=== PATIENT | female | born 1955 | race African-American/Black ===

== ENCOUNTER 2016-09-24 16:27 | Emergency (ER) | payer OTHER ==
[~2016-09-24] VITALS: Ht 175.3 cm; Wt 152.4 kg
[~2016-09-24 16:27] MED LIST: ACETAMINOPHEN-1 EACH ORAL; ALBUTEROL SULF8.5 GM INH; AZITHROMYCIN250 MG ORAL; BACTRIM DS TAB1 EAC1 ORAL; CEPHALEXIN500 MG ORAL; FLURAZEPAM HCL30 MG ORAL; HYDROCHLOROTHIA50 MG PO; MELOXICAM15 MG PO; NORCO 5-325 TA1 EACH ORAL; OMEPRAZOLE20 M3 ORAL; SIMVASTATIN20 MG ORAL; TRAMADOL HCL50 MG ORAL; TYLENOL EXTRA500 MG ORAL
[2016-09-24 16:46] VITALS: BP 198/105
--- NOTE | 2016-09-24 17:15 | Emergency Room Report ---
History of Present Illness General Chief Complaint: General Complaint Source: Patient, Medical Record Present Illness HPI Patient is a 60-year-old female presented after increased arm pain intermittent in nature over the past 2 days. Patient states that she had recently noticed some increase in her blood pressure. Patient had been intermittently compliant with her blood pressure medications. Patient stated that she had previously been taking hydrochlorothiazide which she had not been taking. Patient reports having increased sodium intake in her diet. She denies any productive cough or fever Allergies: Coded Allergies: IBUPROFEN (Verified Allergy, Unknown, 08/06/11) Patient History Past Medical History: see triage record Reviewed Nursing Documentation: PMH: Agreed, PSxH: Agreed Nursing Documentation-PMH Hx Hypertension: Yes Hx Gastrointestinal Problems: Yes - Gastric ulcer Review of Systems All Other Systems: negative except mentioned in HPI Physical Exam Vital Signs Date Time Temp Pulse Resp B/P Pulse Ox O2 Delivery O2 Flow Rate FiO2 09/24/16 16:37 98.1 72 16 198/105 99 Room Air Sp02 EP Interpretation: reviewed, normal General Appearance: normal inspection, well appearing, no apparent distress, alert, GCS 15 Head: atraumatic ENT: normal ENT inspection, hearing grossly normal, normal voice Neck: normal inspection, full range of motion, supple, no bony tend Respiratory: normal inspection, lungs clear, normal breath sounds, no respiratory distress, no retraction, no wheezing Cardiovascular #1: regular rate, rhythm, no edema Gastrointestinal: normal inspection, normal bowel sounds, non tender, soft, no guarding, no hernia Genitourinary: no CVA tenderness Musculoskeletal: normal inspection, back normal, normal range of motion Neurologic: normal inspection, alert, responsive, speech normal Psychiatric: normal inspection, judgement/insight normal, mood/affect normal Skin: normal inspection, normal color, no rash Medical Decision Making Diagnostic Impression: Primary Impression: Urinary tract infection ER Course Patient presented for generalized weakness. Differential diagnosis included was not limited to anemia, urinary tract infection, electrolyte abnormality, hypothyroidism, myocardial infarction, myasthenia gravis, dehydration, among others. Because of complexity of patient's case laboratory testing and imaging studies were ordered.Laboratory testing was unremarkable. There was slight elevation of the patient's urine white blood count consistent with possible UTI. Patient was given prescription for Macrobid. Patient is advised to take her medications as previously prescribed. EKG interpreted by me showed normal sinus rhythm with a rate of [address] or T wave changes. Labs Test 09/24/16 18:15 White Blood Count 5.9 K/UL (4.8-10.8) Red Blood Count 4.55 M/UL (4.20-5.40) Hemoglobin 13.0 G/DL (12.0-16.0) Hematocrit 39.9 % (37.0-47.0) Mean Corpuscular Volume 88 FL (80-99) Mean Corpuscular Hemoglobin 28.5 PG (27.0-31.0) Mean Corpuscular Hemoglobin Concent 32.5 G/DL (32.0-36.0) Red Cell Distribution Width 12.9 % (11.6-14.8) Platelet Count 199 K/UL (150-450) Mean Platelet Volume 8.9 FL (6.5-10.1) Neutrophils (%) (Auto) 48.3 % (45.0-75.0) Lymphocytes (%) (Auto) 43.3 % (20.0-45.0) Monocytes (%) (Auto) 4.6 % (1.0-10.0) Eosinophils (%) (Auto) 2.2 % (0.0-3.0) Basophils (%) (Auto) 1.7 % (0.0-2.0) Urine Color Pale yellow Urine Appearance Clear Urine pH 6 (4.5-8.0) Urine Specific [place] 1.015 (1.005-1.035) Urine Protein Negative (NEGATIVE) Urine Glucose (UA) Negative (NEGATIVE) Urine Ketones Negative (NEGATIVE) Urine Occult Blood Negative (NEGATIVE) Urine Nitrite Negative (NEGATIVE) Urine Bilirubin Negative (NEGATIVE) Urine Urobilinogen Normal MG/DL (0.0-1.0) Urine Leukocyte Esterase 1+ (NEGATIVE) Urine RBC 0-2 /HPF (0 - 2) Urine WBC 2-4 /HPF (0 - 2) Urine Squamous Epithelial Cells Few /LPF (NONE/OCC) Urine Bacteria None /HPF (NONE) Sodium Level 140 mEQ/L (135-145) Potassium Level 4.1 mEQ/L (3.4-4.9) Chloride Level 99 mEQ/L (98-107) Carbon Dioxide Level 24 mEQ/L (20-30) Anion Gap 17 (5-15) Blood Urea Nitrogen 9 mg/dL (7-23) Creatinine 0.9 mg/dL (0.5-0.9) Estimat Glomerular Filtration Rate > 60 mL/min (>60) Glucose Level 93 mg/dL (74-106) Calcium Level 9.1 mg/dL (8.6-10.2) Total Bilirubin 0.5 mg/dL (0.0-1.2) Aspartate Amino Transf (AST/SGOT) 13 U/L (5-40) Alanine Aminotransferase (ALT/SGPT) 8 U/L (3-33) Alkaline Phosphatase 62 U/L (35-104) Total Creatine Kinase 125 U/L (26-140) Troponin I < 0.30 ng/mL (<=0.30) Total Protein 7.1 g/dL (6.6-8.7) Albumin 4.0 g/dL (3.5-5.2) Globulin 3.1 g/dL Albumin/Globulin Ratio 1.2 (1.0-2.7) Urine Opiates Screen Positive (NEGATIVE) Urine Barbiturates Screen Negative (NEGATIVE) Phencyclidine (PCP) Screen Negative (NEGATIVE) Urine Amphetamines Screen Negative (NEGATIVE) Urine Benzodiazepines Screen Negative (NEGATIVE) Urine Cocaine Screen Negative (NEGATIVE) Urine Marijuana (THC) Screen Negative (NEGATIVE) EKG Diagnostic Results Rate: normal - 75 Rhythm: NSR ST Segments: no acute changes Rhythm Strip Diag. Results EP Interpretation: yes Rhythm: NSR, no PVC's, no ectopy Last Vital Signs Date Time Temp Pulse Resp B/P Pulse Ox O2 Delivery O2 Flow Rate FiO2 09/24/16 16:46 98.1 16 198/105 99 Room Air 09/24/16 16:37 72 Status: improved Disposition: HOME, SELF-CARE Condition: Stable Scripts Nitrofurantoin Monohyd/M-Cryst* (MACROBID 100 MG*) 100 Mg Capsule 100 MG ORAL EVERY 12 HOURS, #14 CAP Prov: Segun Brian 09/24/16 Referrals: [facility],REFERRING (PCP) Segun Brian Sep 24, 2016 17:15
[2016-09-24] MEDS ORDERED: Aspirin Baby 81mg ORAL ONE (17:30)
[2016-09-24 18:33] LABS: BASOPHILS % (AUTO) 1.7 % (0.0-2.0); EOSINOPHILS % (AUTO) 2.2 % (0.0-3.0); LYMPHOCYTES % (AUTO) 43.3 % (20.0-45.0); MEAN CORPUSCULAR HEMOGLOBIN 28.5 PG (27.0-31.0); MEAN CORPUSCULAR HGB CONC 32.5 G/DL (32.0-36.0); MEAN CORPUSCULAR VOLUME 88 FL (80-99); MEAN PLATELET VOLUME 8.9 FL (6.5-10.1); MONOCYTES % (AUTO) 4.6 % (1.0-10.0); NEUTROPHILS % (AUTO) 48.3 % (45.0-75.0); PLATELET COUNT 199 K/UL (150-450); RED BLOOD COUNT 4.55 M/UL (4.20-5.40); RED CELL DISTRIBUTION WIDTH 12.9 % (11.6-14.8); WHITE BLOOD COUNT 5.9 K/UL (4.8-10.8)
[2016-09-24 18:40] LABS: APPEARANCE,URINE CLEAR
[2016-09-24 18:41] LABS: KETONES,URINE NEGATIVE (NEGATIVE); LEUKOCYTE ESTERASE ,URINE 1+ (NEGATIVE); NITRITE,URINE NEGATIVE (NEGATIVE); PH,URINE 6 (4.5-8.0); PROTEIN,URINE NEGATIVE (NEGATIVE); UROBILINOGEN,URINE NORMAL MG/DL (0.0-1.0)
[2016-09-24 18:43] LABS: RBC,URINE 0-2 /HPF (0 - 2); SQUAMOUS EPITHELIAL CELL,UR FEW /LPF (NONE/OCC)
[2016-09-24 18:51] LABS: TROPONIN I < 0.30 ng/mL (<=0.30)
[2016-09-24 18:52] LABS: ALANINE AMINOTRANSFERASE 8 U/L (3-33); ALBUMIN/GLOBULIN RATIO 1.2 (1.0-2.7); ANION GAP 17 (5-15); ASPARTATE AMINO TRANSFERASE 13 U/L (5-40); CALCIUM 9.1 mg/dL (8.6-10.2); CARBON DIOXIDE 24 mEQ/L (20-30); CHLORIDE 99 mEQ/L (98-107); CREATININE 0.9 mg/dL (0.5-0.9); GLOMERULAR FILTRATION RATE > 60 mL/min (>60); HEMOLYSIS 19; POTASSIUM 4.1 mEQ/L (3.4-4.9); SODIUM 140 mEQ/L (135-145); TOTAL PROTEIN 7.1 g/dL (6.6-8.7)
[2016-09-24] MEDS ORDERED: NITROFURANTOIN100 M2 ORAL (19:00)
[2016-09-24 19:02] LABS: CKMB 1.6 ng/mL (< 3.8)
[2016-09-24 19:10] VITALS: BP 148/57
--- NOTE | 2016-09-25 09:45 | Diagnostic Imaging Report ---
Indication: SOB Technique: XRAY CHEST 1 V Comparison: 09/01/2012. Findings: The cardiomediastinal silhouette is normal. The lungs are clear. There is no evidence of pleural fluid. The bones are unremarkable. Impression: Normal chest.
--- NOTE | 2016-09-28 00:26 | Cardiology Report ---
APPROVED REPORT EKG Measurement Heart [id number] Normal sinus rhythm Normal ECG
== END 2016-09-24 19:10 | disposition home or self-care (01) ==
LOC: EMR 17:04
DX: N39.0 Urinary tract infection, site not specified (principal); I10 Essential (primary) hypertension; Z88.6 Allergy status to analgesic agent
CPT/HCPCS: 36415; 71010; 80053; 80300; 81003; 82550; 82553; 84484; 85025; 93005; 99283

== ENCOUNTER 2018-06-28 19:43 | Emergency (ER) | payer OTHER ==
[~2018-06-28] VITALS: Ht 175.3 cm; Wt 152.4 kg
[~2018-06-28 19:43] MED LIST changes: +NITROFURANTOIN100 M2 ORAL
[2018-06-28] MEDS ORDERED: UNOBMED (19:50)
--- NOTE | 2018-06-28 19:50 | NUR ---
ED Nurse Note: pt brought in by [facility] c/o dizziness and generalized weakness started this morning, pt reports she has been having some cold s/s this week but denies any injury or pain at this time. pt AA&xo4, gcs=15, skin warm and dry, resp even and unlabored, +N -v/d, active BS, ambulatory w/ cane w/ steady gait, NSR on personnel monitor, VSS, will cont monitor, bed lowest position w/ side rail x2, pt advised to notify staff if needed assist.
[2018-06-28] MEDS ORDERED: Meclizine 25mg tab ORAL PRN (20:00)
[2018-06-28] MEDS ORDERED: Sodium Chloride 500ML 550 ML IV SCH (20:00)
[2018-06-28 20:41] LABS: BASOPHILS % (AUTO) 1.4 % (0.0-2.0); EOSINOPHILS % (AUTO) 3.6 % (0.0-3.0); HEMATOCRIT 37.9 % (37.0-47.0); HEMOGLOBIN 12.1 G/DL (12.0-16.0); LYMPHOCYTES % (AUTO) 43.9 % (20.0-45.0); MEAN CORPUSCULAR VOLUME 89 FL (80-99); MONOCYTES % (AUTO) 5.8 % (1.0-10.0); NEUTROPHILS % (AUTO) 45.2 % (45.0-75.0); PLATELET COUNT 214 K/UL (150-450); RED BLOOD COUNT 4.26 M/UL (4.20-5.40); RED CELL DISTRIBUTION WIDTH 12.1 % (11.6-14.8); WHITE BLOOD COUNT 5.4 K/UL (4.8-10.8)
[2018-06-28 20:42] VITALS: BP 133/56
[2018-06-28 20:44] LABS: APPEARANCE,URINE CLEAR; BILIRUBIN, URINE NEGATIVE (NEGATIVE); COLOR,URINE PALE YELLOW; GLUCOSE, URINE (UA) NEGATIVE (NEGATIVE); KETONES,URINE NEGATIVE (NEGATIVE); LEUKOCYTE ESTERASE ,URINE NEGATIVE (NEGATIVE); NITRITE,URINE NEGATIVE (NEGATIVE); PH,URINE 6 (4.5-8.0); PROTEIN,URINE NEGATIVE (NEGATIVE); UROBILINOGEN,URINE NORMAL MG/DL (0.0-1.0)
[2018-06-28 20:50] LABS: ANION GAP 8 mmol/L (5-15); BLOOD UREA NITROGEN 10 mg/dL (7-18); CALCIUM 8.9 MG/DL (8.5-10.1); CARBON DIOXIDE 25 MMOL/L (21-32); CHLORIDE 105 MMOL/L (98-107); CREATININE 0.9 MG/DL (0.55-1.30); POTASSIUM 4.4 MMOL/L (3.5-5.1); SODIUM 138 MMOL/L (136-145)
--- NOTE | 2018-06-28 20:50 | NUR ---
ED Nurse Note: pt reports nausea and dizziness is better with medication, pt NSR, vss on clinical laboratory assistant, bed lowest position w/ siderail x2, pt advised to notify staff if needed assist, pt resting comfortably, will cont monitor.
[2018-06-28 21:06] LABS: ALANINE AMINOTRANSFERASE 20 U/L (12-78); ALBUMIN 3.5 G/DL (3.4-5.0); ALBUMIN/GLOBULIN RATIO 0.9 (1.0-2.7); ALKALINE PHOSPHATASE 81 U/L (46-116); ASPARTATE AMINO TRANSFERASE 29 U/L (15-37); BILIRUBIN,TOTAL 0.4 MG/DL (0.2-1.0); CREATINE KINASE 162 U/L (26-308)
--- NOTE | 2018-06-28 21:18 | Emergency Room Report ---
History of Present Illness General Chief Complaint: Generalized Weakness Source: Patient Present Illness HPI Patient presents with a feeling of dizziness and lack of wellness. She feels nausea. When she turns her head she feels the world spinning. She feels like she does not have to throw up. Also there is more discomfort and tightness in the left side of her neck. Comes from her left shoulder radiates up towards her ear on that side. She has not had any fevers or chills. There is no tinnitus. She never had this feeling before. She denies chest pain although she is worried about her heart because is her left neck where she feels discomfort.. She denies sore throat or sinus problems. The symptoms are somewhat better when she lays down. She denies any headache. She denies pain to the nurse and complains more of stiffness in the neck to me. No family history of strokes or aneurysms. There is no unilateral tingling or weakness. No palpitations. Risk factors for cardiac disease: Hypertension. She denies diabetes, smoking, family history and is not being treated for cholesterol. Allergies: Coded Allergies: No Known Allergies (Unverified , 06/28/18) Patient History Past Medical History: see triage record Social History: Denies: smoking Social History Narrative from home Last Menstrual Period: CURLY Reviewed Nursing Documentation: PMH: Agreed; PSxH: Agreed Nursing Documentation-PMH Past Medical History: No History, Except For Hx Hypertension: Yes Hx Gastrointestinal Problems: Yes - Gastric ulcer Review of Systems All Other Systems: negative except mentioned in HPI Physical Exam Vital Signs Date Time Temp Pulse Resp B/P (MAP) Pulse Ox O2 Delivery O2 Flow Rate FiO2 06/28/18 19:47 98.4 120 16 198/100 99 Room Air Sp02 EP Interpretation: reviewed, normal General Appearance: well appearing, no apparent distress, GCS 15 Head: normocephalic Eyes: bilateral eye normal inspection, bilateral eye PERRL, bilateral eye EOMI ENT: normal pharynx, normal voice, TMs + canals normal, moist mucus membranes Neck: full range of motion, supple, no bony tend, tender lateral - Left anterior Respiratory: chest non-tender, lungs clear, normal breath sounds Cardiovascular #1: regular rate, rhythm Cardiovascular #2: 2+ radial (R) Gastrointestinal: normal inspection, normal bowel sounds, non tender, no mass, non-distended Musculoskeletal: back normal, gait/station normal, normal range of motion Neurologic: alert, oriented x3, acetylene torch burner III-XII nml as tested, motor strength/tone normal, DTRs symmetric, sensory intact, cerebellar normal, normal gait, speech normal Psychiatric: mood/affect normal - Slightly anxious Skin: normal inspection, warm/dry Medical Decision Making Diagnostic Impression: Primary Impression: Vertigo ER Course Patient presents with the world spinning when she turns her head with some left neck stiffness. Differential includes labyrinthitis, benign positional vertigo , neck strain, cerebellar infarct amongst others. She is concerned about heart attack and will be evaluated with EKG, chest x-ray and labs. Based on the neurologic exam CT of the head is not indicated at this time. She will be treated with Zofran and meclizine. EKG without injury. Chest x-ray normal. CBC and CMP are normal. Urinalysis clear. Patient is improved after treatment. The vertigo is better with meclizine and there is no more nausea after Zofran. Lab results are discussed with the patient and she was reassured that this is not a heart attack or stroke. She was told she needed close outpatient observation and repeat evaluation by her own doctors. No medical emergency identified at this time. Patient is stable for outpatient observation and treatment. Laboratory Tests Test 06/28/18 20:08 White Blood Count 5.4 K/UL (4.8-10.8) Red Blood Count 4.26 M/UL (4.20-5.40) Hemoglobin 12.1 G/DL (12.0-16.0) Hematocrit 37.9 % (37.0-47.0) Mean Corpuscular Volume 89 FL (80-99) Mean Corpuscular Hemoglobin 28.5 PG (27.0-31.0) Mean Corpuscular Hemoglobin Concent 32.0 G/DL (32.0-36.0) Red Cell Distribution Width 12.1 % (11.6-14.8) Platelet Count 214 K/UL (150-450) Mean Platelet Volume 7.8 FL (6.5-10.1) Neutrophils (%) (Auto) 45.2 % (45.0-75.0) Lymphocytes (%) (Auto) 43.9 % (20.0-45.0) Monocytes (%) (Auto) 5.8 % (1.0-10.0) Eosinophils (%) (Auto) 3.6 % (0.0-3.0) H Basophils (%) (Auto) 1.4 % (0.0-2.0) Prothrombin Time 10.1 SEC (9.30-11.50) Prothrombin Time INR 1.0 (0.9-1.1) PTT 26 SEC (23-33) Urine Color Pale yellow Urine Appearance Clear Urine pH 6 (4.5-8.0) Urine Specific [place] 1.015 (1.005-1.035) Urine Protein Negative (NEGATIVE) Urine Glucose (UA) Negative (NEGATIVE) Urine Ketones Negative (NEGATIVE) Urine Blood Negative (NEGATIVE) Urine Nitrite Negative (NEGATIVE) Urine Bilirubin Negative (NEGATIVE) Urine Urobilinogen Normal MG/DL (0.0-1.0) Urine Leukocyte Esterase Negative (NEGATIVE) Sodium Level 138 MMOL/L (136-145) Potassium Level 4.4 MMOL/L (3.5-5.1) Chloride Level 105 MMOL/L (98-107) Carbon Dioxide Level 25 MMOL/L (21-32) Anion Gap 8 mmol/L (5-15) Blood Urea Nitrogen 10 mg/dL (7-18) Creatinine 0.9 MG/DL (0.55-1.30) Estimate Glomerular Filtration Rate > 60 mL/min (>60) Glucose Level 112 MG/DL (74-106) H Calcium Level 8.9 MG/DL (8.5-10.1) Total Bilirubin 0.4 MG/DL (0.2-1.0) Aspartate Amino Transferase (AST) 29 U/L (15-37) Alanine Aminotransferase (ALT) 20 U/L (12-78) Alkaline Phosphatase 81 U/L (46-116) Total Creatine Kinase 162 U/L (26-308) Troponin I 0.000 ng/mL (0.000-0.056) Pro-B-Type Natriuretic Peptide 179 pg/mL (0-125) H Total Protein 7.5 G/DL (6.4-8.2) Albumin 3.5 G/DL (3.4-5.0) Globulin 4.0 g/dL Albumin/Globulin Ratio 0.9 (1.0-2.7) L Urine Opiates Screen Negative (NEGATIVE) Urine Barbiturates Screen Negative (NEGATIVE) Phencyclidine (PCP) Screen Negative (NEGATIVE) Urine Amphetamines Screen Negative (NEGATIVE) Urine Benzodiazepines Screen Negative (NEGATIVE) Urine Cocaine Screen Negative (NEGATIVE) Urine Marijuana (THC) Screen Negative (NEGATIVE) EKG Diagnostic Results Rate: normal Rhythm: NSR ST Segments: no acute changes Rhythm Strip Diag. Results EP Interpretation: yes Rhythm: NSR, other - rate 76 PVC Chest X-Ray Diagnostic Results Chest X-Ray Diagnostic Results : Chest X-Ray Ordered: Yes # of Views/Limited/Complete: 1 View Indication: Other EP Interpretation: Yes Interpretation: no consolidation, no effusion, no pneumothorax, other - DJD Impression: Other Electronically Signed by: Electronically signed by Nathaniel De La Rosa MD Last Vital Signs Date Time Temp Pulse Resp B/P (MAP) Pulse Ox O2 Delivery O2 Flow Rate FiO2 06/28/18 21:38 97.4 69 16 133/69 100 Room Air Status: improved Disposition: HOME, SELF-CARE Condition: Improved Scripts Meclizine Hcl* (MECLIZINE*) 25 Mg Tablet 25 MG ORAL THREE TIMES A DAY PRN for dizziness, #10 TAB Prov: Nathaniel De La Rosa MD 06/28/18 Ondansetron Odt* (ZOFRAN ODT*) 4 Mg Tab.rapdis 4 MG BC EVERY 8 HOURS, #6 TAB 0 Refills Prov: Nathaniel De La Rosa MD 06/28/18 Nathaniel De La Rosa MD Jun 28, 2018 21:18
[2018-06-28] MEDS ORDERED: ONDANSETRON ODT4 MG BC (21:31)
[2018-06-28] MEDS ORDERED: MECLIZINE HCL25 MG ORAL (21:31)
[2018-06-28 21:38] VITALS: BP 133/69
--- NOTE | 2018-06-28 22:10 | NUR ---
ED Nurse Note: pt discharge instruction provided w/ prescription, EKG, and lab results per ERMD order, pt education done via discussion and handout, pt iv d/c, pt tolerated well w/o difficulty, dressing applied and intact, wrist band removed, pt advised to follow up with pcp or return to ED if s/s worsen or new s/s develop, pt verbalized understanding and agrees with plan, pt taxi voucher issued, contacted house sup, pt ambulatory w/ cane w/ steady gait, pt vss, AA&ox4, gcs=15. all belongings left with pt.
--- NOTE | 2018-06-29 12:15 | Diagnostic Imaging Report ---
Indication: Dyspnea Comparison: 09/24/2016 A single view chest radiograph was obtained. Findings: Cardiomediastinal appearance is within normal limits for age. The lungs are clear. Pulmonary vascularity is appropriate. The diaphragmatic contour is smooth and costophrenic angles are sharp. No pleural effusions are identified. Osteophytes noted throughout the thoracic spine. Impression: No acute findings
--- NOTE | 2018-06-29 15:47 | Cardiology Report ---
APPROVED REPORT EKG Measurement Heart [id number] Normal sinus rhythm Normal ECG
== END 2018-06-28 21:40 | disposition home or self-care (01) ==
LOC: EDBD 19:43 → EMR 20:17
DX: R42 Dizziness and giddiness (principal); R53.1 Weakness; M43.6 Torticollis; I10 Essential (primary) hypertension; Z87.19 Personal history of other diseases of the digestive system
CPT/HCPCS: 36415; 71045; 80053; 80307; 81003; 82550; 83880; 84484; 85025; 85610; 85730; 93005; 96361; 96374; 99284; J2405

== ENCOUNTER 2018-09-19 20:54 | Emergency (ER) | payer OTHER ==
[~2018-09-19] VITALS: Ht 170.2 cm; Wt 161.0 kg
[~2018-09-19 20:54] MED LIST changes: +MECLIZINE HCL25 MG ORAL; +ONDANSETRON ODT4 MG BC; +UNOBMED
[2018-09-19 21:09] VITALS: BP 152/91
--- NOTE | 2018-09-19 21:09 | NUR ---
ED Nurse Note: Pt arrived ED from home. C/o left lower abdominal pain 11/19 today . Pt is A/OX 4. Vital signs stable at this time, waiting for orders.
[2018-09-19] MEDS ORDERED: NITROFURANTOIN100 M2 ORAL (21:35)
[2018-09-19 21:45] VITALS: BP 152/91
--- NOTE | 2018-09-19 21:45 | NUR ---
ER DISCHARGE NOTE: Patient is cleared to be discharged per Dr. Muñoz. Pt is A/O x 4 on room air with stable vital signs. Pt was given D/C and prescription instructions and was able to verbalize understanding. Pt's ID band removed. Pt is able to ambulate with steady gait and took all belongings. Accompanied by his family.
[2018-09-19 21:57] LABS: APPEARANCE,URINE CLEAR; BILIRUBIN, URINE NEGATIVE (NEGATIVE); GLUCOSE, URINE (UA) NEGATIVE (NEGATIVE); KETONES,URINE 1+ (NEGATIVE); LEUKOCYTE ESTERASE ,URINE 2+ (NEGATIVE); NITRITE,URINE NEGATIVE (NEGATIVE); PH,URINE 5 (4.5-8.0); PROTEIN,URINE 2+ (NEGATIVE); UROBILINOGEN,URINE 1 MG/DL (0.0-1.0)
[2018-09-19 21:58] LABS: COLOR,URINE YELLOW
--- NOTE | 2018-09-19 23:11 | Emergency Room Report ---
History of Present Illness General Chief Complaint: Female Urogenital Problems Source: Patient Present Illness HPI Patient persist with complaints of left lower back pain some radiation towards the lower left abdominal region Patient came in with family member with reports of eye pressure Denies any fall denies any dysuria She has some frequency of urination Denies any loss of control of bowel or urination patient ambulate with a cane chronically Denies any fevers denies any vomiting or diarrhea Discomfort ongoing over the past several days Allergies: Coded Allergies: No Known Allergies (Unverified , 06/28/18) Patient History Past Medical History: see triage record Pertinent Family History: none Reviewed Nursing Documentation: PMH: Agreed; PSxH: Agreed Nursing Documentation-PMH Hx Hypertension: Yes Hx Gastrointestinal Problems: Yes - Gastric ulcer Review of Systems All Other Systems: negative except mentioned in HPI Physical Exam Vital Signs Date Time Temp Pulse Resp B/P (MAP) Pulse Ox O2 Delivery O2 Flow Rate FiO2 09/19/18 20:58 96 16 154/93 94 Sp02 EP Interpretation: reviewed, normal General Appearance: no apparent distress Head: normocephalic, atraumatic Eyes: bilateral eye PERRL, bilateral eye EOMI ENT: normal pharynx Neck: supple Respiratory: lungs clear, no retraction, no accessory muscle use Cardiovascular #1: regular rate, rhythm Gastrointestinal: non tender, soft Musculoskeletal: other - Some discomfort reproduced over the left posterior superior iliac crest no midline tenderness Neurologic: alert, oriented x3, responsive Skin: normal color, no rash Medical Decision Making Diagnostic Impression: Primary Impression: sciatica Additional Impression: uti ER Course Given the patient's presentation and history multiple differentials and consideration Patient did have urine sample obtained That showed 2+ leukocytes there is some consideration for sciatic type discomfort as well patient does not meet emergency criteria for imaging Is otherwise stable does not appear septic or toxic And is appropriate for close outpatient follow-up Labs Test 09/19/18 21:32 Urine Color Yellow Urine Appearance Clear Urine pH 5 (4.5-8.0) Urine Specific [place] 1.025 (1.005-1.035) Urine Protein 2+ (NEGATIVE) Urine Glucose (UA) Negative (NEGATIVE) Urine Ketones 1+ (NEGATIVE) Urine Blood Negative (NEGATIVE) Urine Nitrite Negative (NEGATIVE) Urine Bilirubin Negative (NEGATIVE) Urine Urobilinogen 1 MG/DL (0.0-1.0) Urine Leukocyte Esterase 2+ (NEGATIVE) Urine RBC 0-2 /HPF (0 - 2) Urine WBC 2-4 /HPF (0 - 2) Urine Squamous Epithelial Cells Few /LPF (NONE/OCC) Urine Bacteria Few /HPF (NONE) Last Vital Signs Date Time Temp Pulse Resp B/P (MAP) Pulse Ox O2 Delivery O2 Flow Rate FiO2 09/19/18 20:58 96 16 154/93 94 Status: unchanged Disposition: HOME, SELF-CARE Condition: Stable Scripts Nitrofurantoin Monohyd/M-Cryst* (MACROBID 100 MG*) 100 Mg Capsule 100 MG ORAL EVERY 12 HOURS for 7 Days, CAP Prov: Marlene Muñoz DO 09/19/18 Referrals: [facility],REFERRING (PCP) Patient Instructions: Urinary Tract Infection, Sciatica, [id number] Additional Instructions: Patient is provided with the discharge instructions notified to follow up with primary doctor in the next 2-3 days otherwise return to the er with any worsening symptoms. Please note that this report is being documented using DRAGON technology. This can lead to erroneous entry secondary to incorrect interpretation by the dictating instrument. Marlene Muñoz DO Sep 19, 2018 23:11
--- NOTE | 2018-09-19 23:22 | NUR ---
Note kaity in EDM - 09/19/18 at 2326 by JUAN ED Nurse Note: Pt arrived ED from home. C/o left lower abdominal pain 11/19 today . Pt is A/OX 4. Vital signs stable at this time, waiting for orders.
== END 2018-09-19 21:45 | disposition home or self-care (01) ==
LOC: EMR 21:30
DX: M54.40 Lumbago with sciatica, unspecified side (principal); N39.0 Urinary tract infection, site not specified; I10 Essential (primary) hypertension
CPT/HCPCS: 81003; 99283

== ENCOUNTER 2019-08-27 14:27 | Emergency (ER) | payer OTHER ==
[~2019-08-27] VITALS: Ht 175.3 cm; Wt 153.3 kg
[2019-08-27 14:39] VITALS: BP 140/68
--- NOTE | 2019-08-27 14:45 | NUR ---
ED Nurse Note: patient walked into ED from home c/o she twisted her back while she was holding something heavy (water), c/o lower back and left sided pain for 2 days. c/o twisted back; c/o lower back and left side pain for the past few days.
[2019-08-27] MEDS ORDERED: LIDODERM700 M1 TOPIC (15:09)
[2019-08-27 15:18] VITALS: BP 140/68
--- NOTE | 2019-08-27 15:21 | NUR ---
ER DISCHARGE NOTE: Patient is cleared to be discharged per ERMD DR RANDOLPH, pt is aox4, on room air, with stable vital signs. pt was given dc and prescription instructions, pt was able to verbalize understanding, pt id band removed without complications. pt is able to ambulate with steady gait. pt took all belongings.
--- NOTE | 2019-08-27 18:25 | Emergency Room Report ---
History of Present Illness General Chief Complaint: Back Injury Source: Patient Present Illness HPI [id number] complaining of back pain. Says this started a few days ago when she was lifting some heavy items and nearly fell and felt twisting in her back. Notes pain in her lower back. Dull, 8 out of 10, nonradiating. Denies fevers or chills. Denies bowel or bladder incontinence. Denies any leg or motor weakness. Denies any other injuries. No other aggravating relieving factors. Denies any other associated symptoms COVID-19 risk:Travel to affect: No Has patient experienced varner: No Allergies: Coded Allergies: No Known Allergies (Unverified , 06/28/18) Patient History Past Medical History: HTN, GERD Pertinent Family History: none Social History: Denies: smoking, alcohol use, drug use Now: No Immunizations: UTD Reviewed Nursing Documentation: PMH: Agreed; PSxH: Agreed Nursing Documentation-PMH Past Medical History: No History, Except For Hx Hypertension: Yes Hx Gastrointestinal Problems: Yes - Gastric ulcer Review of Systems All Other Systems: negative except mentioned in HPI Physical Exam Vital Signs Date Time Temp Pulse Resp B/P (MAP) Pulse Ox O2 Delivery O2 Flow Rate FiO2 08/27/19 14:39 98.8 102 18 140/68 99 Room Air Sp02 EP Interpretation: reviewed, normal General Appearance: no apparent distress, alert, GCS 15, non-toxic, obese Head: normocephalic, atraumatic Eyes: bilateral eye normal inspection, bilateral eye PERRL ENT: hearing grossly normal, normal pharynx, no angioedema, normal voice Neck: full range of motion, supple/symm/no masses Respiratory: chest non-tender, lungs clear, normal breath sounds, speaking full sentences Cardiovascular #1: regular rate, rhythm, no edema Cardiovascular #2: 2+ carotid (R), 2+ carotid (L), 2+ radial (R), 2+ radial (L) , 2+ dorsalis pedis (R), 2+ dorsalis pedis (L) Gastrointestinal: normal bowel sounds, non tender, soft, non-distended, no guarding, no rebound Rectal: deferred Genitourinary: normal inspection, no CVA tenderness Musculoskeletal: normal range of motion, gait/station normal, tender - paraspinal lumbar tenderness Neurologic: alert, motor strength/tone normal, oriented x3, sensory intact, responsive, speech normal Psychiatric: judgement/insight normal, memory normal, mood/affect normal, no suicidal/homicidal ideation Reflexes: 3+ bicep (R), 3+ bicep (L), 3+ tricep (R), 3+ tricep (L), 3+ knee (R) , 3+ knee (L) Skin: no rash Lymphatic: no adenopathy Medical Decision Making Diagnostic Impression: Primary Impression: Back pain Qualified Codes: M54.5 - Low back pain ER Course Hospital Course 63-year-old female presents ED complaining of lower back pain. Differential diagnoses include: pyelonephritis, kidney stone, muscle strain, Lspine fracture Clinical course Patient placed on stretcher. After initial history exam reveals obese female in no acute distress. There is no lumbar tenderness. There is no CVA tenderness. There is some paraspinal tenderness in the lower lumbar region. 5 out of 5 strength in lower extremities. No sensory deficit. Discussed findings with patient. Pain is muscular. History of sciatica but there is no radiating pain down the leg at this time. Given lidocaine patch. I do not believe imaging required at this time. Safe for discharge and close outpatient follow-up. States she has a PMD Diagnosis - back pain Stable and discharged to home with prescription for Lidoderm. Followup with PMD. Return to ED if symptoms recur or worsen Last Vital Signs Date Time Temp Pulse Resp B/P (MAP) Pulse Ox O2 Delivery O2 Flow Rate FiO2 08/27/19 15:18 98.8 102 18 140/68 99 Room Air Status: improved Disposition: HOME, SELF-CARE Condition: Stable Scripts Lidocaine Patch* (Lidoderm Patch*) 1 Each Adh..patch 1 PATCH TOPIC DAILY, #7 PATCH 0 Refills Patch(es) may remain in place for up to 12 hours in any 24-hour period. Prov: Gus Jasso MD 08/27/19 Referrals: [facility],REFERRING (PCP) Patient Instructions: Back Pain, Adult Gus Jasso MD Aug 27, 2019 18:24
== END 2019-08-27 15:22 | disposition home or self-care (01) ==
LOC: EMR 15:00
DX: M54.5 Low back pain (principal); E66.9 Obesity, unspecified; I10 Essential (primary) hypertension; K21.9 Gastro-esophageal reflux disease without esophagitis; Z68.41 Body mass index [BMI] 40.0-44.9, adult
CPT/HCPCS: 99281